=== PATIENT | male | born 1960 | race Caucasian/White ===

== ENCOUNTER 2019-06-02 09:50 | Outpatient (CLI) | payer BC, SELFPAY ==
--- NOTE | 2019-06-02 10:07 | MR_ITS ---
WS: [id number] MRI LUMBAR SPINE NONCONTRAST TECHNIQUE: Sagittal T1, T2 and STIR imaging. Axial T1 and T2 imaging. CLINICAL INFORMATION: INTERVERTEBRAL DIS DISORDERS WITH RADICULOPATHY COMPARISON: CT March 30, 2018 and MRI May 15, 2014 FINDINGS: Mild lumbar curve. No acute compression. No high-grade central canal stenosis. Mild annular bulging L 3-L4 and L4-L5. L1-L2: Normal. L2-L3: No significant disc bulging. Mild facet arthropathy. Spinal canal and foramen are patent. L3-L4: Mild annular bulging with a shallow central disc protrusion. Narrowing of the subarticular rec ess bilaterally. Mild central canal stenosis. Mild right greater than left foraminal narrowing. Mild facet arthropathy. L4-L5: Mild annular bulging. Slight narrowing of the right subarticular recess. Mild right and no sig nificant left foraminal narrowing. Mild facet arthropathy. L5-S1: No significant disc bulging. Spinal canal and foramen are patent. Visualized pelvic bony structures: Normal. Paravertebral soft tissues: Normal. MR/MR lumbar spine wo con* [id number] IMPRESSION: 1. Mild lumbar curve. No acute compression. No high-grade central canal stenos is. 2. Shallow central protrusion L3-4 with impingement on the right greater than left subarticular recess and traversing right L4 nerve root. Recommend correlat ion for L4 nerve root symptoms. Mild central canal stenosis at this level. 3. Annular bulging L4-5 with slight impingement on the right subarticular rece ss and traversing right L5 nerve root. 4. Mild foraminal narrowing more prominent at right L3-L4 and L4-L5. 5. Mild facet arthropathy L3-L5.
--- NOTE | 2019-06-02 10:08 | XR_ITS ---
WS: [id number] LUMBAR SPINE FLEXION AND EXTENSION TECHNIQUE: 3 views of the lumbar spine: Lateral neutral, flexion, and extension views. CLINICAL INFORMATION: INTERVERTEBRAL DIS DISORDERS WITH RADICULOPATHY COMPARISON: None. FINDINGS: Moderate spondylitic changes lumbar spine. Slight retrolisthesis L3 on L4 and L4 on L5. Disc space na rrowing worse at L3-4. Moderate facet arthropathy L5-S1. No instability on flexion-extension. Vascula r calcification. No acute appearing compression fractures.. Is XR/XR lumbar spine f/e only [id number] IMPRESSION: Slight retrolisthesis L3 on L4 and L4 on L5. No instability on flexion-extensio n.
== END 2019-06-02 09:51 | disposition home or self-care (01) ==
LOC: RADWPI 09:57
PROVIDERS: Family Provider Family Medicine; PCP Family Medicine; Visit Provider Anesthesiology Pain Medicine
DX: M51.16 Intervertebral disc disorders with radiculopathy, lumbar region (principal); M51.26 Other intervertebral disc displacement, lumbar region; M48.061 Spinal stenosis, lumbar region without neurogenic claudication; M47.816 Spondylosis without myelopathy or radiculopathy, lumbar region
CPT/HCPCS: 72120; 72148

== ENCOUNTER 2019-09-05 09:03 | Outpatient (CLI) | payer BC, SELFPAY ==
--- NOTE | 2019-09-05 09:30 | USCV_ITS ---
Thierno Barrios Age: 59 Gender: M : 1960 Exam Date: 09/05/2019 09:31 Ordering Phys: Artemio Ballard MD ([email or web address]) Technologist: Bennie Alvarado Exam Location: [facility] [place] Indication: ABNORMAL EKG BP: 130 / 65 HR: 65 Rhythm: Sinus Technical Quality: Adequate MEASUREMENTS (Male / Female) Normal Values 2D ECHO LV Diastolic Diameter PLAX 4.5 cm 4.2 - 5.9 / 3.9 - 5.3 cm LV Systolic Diameter PLAX 2.2 cm IVS Diastolic Thickness 1.0 cm 0.6 - 1.0 / 0.6 - 0.9 cm IVS Systolic Thickness 1.8 cm LVPW Diastolic Thickness 1.5 cm 0.6 - 1.0 / 0.6 - 0.9 cm LVPW Systolic Thickness 1.7 cm LVOT Diameter 2.0 cm LV Ejection Fraction 2D Teich 82.2 % LV Ejection Fraction MOD 2C 73.9 % LV Ejection Fraction 2C AL 72.0 % LA Diameter 4.6 cm LA Width 3.9 cm LA Height 4.8 cm RA Width 4.4 cm RA Height 5.0 cm Aorta at Sinotubular Diameter 2.7 cm M-MODE LV Diastolic Diameter MM 5.8 cm 4.2 - 5.9 / 3.9 - 5.3 cm LV Systolic Diameter MM 3.5 cm LV Ejection Fraction MM Teich 70.1 % IVS Diastolic Thickness MM 1.2 cm 0.6 - 1.0 / 0.6 - 0.9 cm IVS Systolic Thickness MM 1.8 cm LVPW Diastolic Thickness MM 1.5 cm 0.6 - 1.0 / 0.6 - 0.9 cm LVPW Systolic Thickness MM 2.1 cm RV Diastolic Diameter MM 1.6 cm Aortic Annulus Diameter 3.5 cm LA Ao Ratio MM 1.3 MV E Point Septal Separation 1.3 cm DOPPLER AV Peak Velocity 189.0 cm/s LVOT Peak Velocity 137.0 cm/s AV Area Cont Eq vti 2.5 cm squared AV Area Cont Eq pk 2.3 cm squared MV Area PHT 5.0 cm squared Mitral E to A Ratio 0.7 MV E' Velocity 10.0 cm/s Mitral E to MV E' Ratio 11.2 Mitral E to LV E' Lateral Ratio 10.8 Mitral E to LV E' Septal Ratio 11.6 TR Peak Velocity 130.0 cm/s TR Peak Gradient 6.8 mmHg TV Peak E Velocity 99.0 cm/s Right Atrial Pressure 3.0 mmHg Pulmonary Artery Systolic Pressu 9.8 mmHg PV Peak Velocity 127.0 cm/s FINDINGS Left Ventricle Normal left ventricular cavity size. Normal left ventricular systolic function. No regional wall motion abnormalities. Left ventricular ejection fraction is estimated at 60 %. Grade I/IV diastolic dysfunction (abnormal relaxation filling pattern), normal to mildly elevated filling pressures. Right Ventricle The right ventricle is normal in size and function. Right Atrium The right atrium is normal in size. Left Atrium The left atrium is normal in size. Mitral Valve Structurally normal mitral valve without significant stenosis or prolapse. There is no mitral regurgitation. Aortic Valve Moderate aortic valve calcification. There appeared to be thickening of aortic valve which could be secondary to calcification however cannot rule out vegetation clinical correlation indicated. Trace aortic valve regurgitation noted. Tricuspid Valve Structurally normal tricuspid valve without significant stenosis or regurgitation. Pulmonary artery systolic pressure is normal. Pulmonic Valve Structurally normal pulmonic valve without significant stenosis. There is no pulmonic regurgitation. Pericardium Normal pericardium without effusion. Aorta Normal ascending aorta dimension. CONCLUSIONS 1-Normal left ventricular cavity size. Normal left ventricular systolic function. No regional wall motion abnormalities. Left ventricular ejection fraction is estimated at 60 %. Grade I/IV diastolic dysfunction (abnormal relaxation filling pattern), normal to mildly elevated filling pressures. 2-Moderate aortic valve calcification. There appeared to be thickening of aortic valve which could be secondary to calcification however cannot rule out vegetation clinical correlation indicated. Trace aortic valve regurgitation noted. 3-There is no pericardial effusion. 4-Pulmonary artery systolic pressure is within normal limits. 5-Right atrial pressure is around 5 mm of mercury. 6-There are no prior echocardiogram studies to compare. Artemio Ballard MD (Electronically Signed) Final Date: 05 September 2019 18:16 S
== END 2019-09-05 09:04 | disposition home or self-care (01) ==
PROVIDERS: Family Provider Family Medicine; PCP Family Medicine; Visit Provider Internal Medicine Cardiovascular Disease
DX: R06.02 Shortness of breath (principal); R42 Dizziness and giddiness; R53.83 Other fatigue; I48.91 Unspecified atrial fibrillation; R94.31 Abnormal electrocardiogram [ECG] [EKG]; I35.1 Nonrheumatic aortic (valve) insufficiency
CPT/HCPCS: 93306

== ENCOUNTER → 2019-09-26 08:07 | Day surgery (SDC) | payer BC, SELFPAY ==
[2019-09-22 12:27] VITALS: BMI 28.7
[2019-09-26 08:31] VITALS: BP 183/63; PULSE 35; RESP 18; TEMP 36.2; O2SAT 99
--- NOTE | 2019-09-26 08:37 | ECG_ITS ---
[facility] Test Date: 2019-09-26 Pat Name: Thierno Barrios Department: Room: Gender: Male Call Or Contact Centre Manager: : 1960 Requested By: Susan Cortes Order Number: [id number] Mamta MD: Artemio Ballard M.D. Measurements Intervals [place] Rate: 32 P: -43 CO: 258 QRS: -57 QRSD: 135 T: -7 QT: 494 QTc: 362 Interpretive Statements SINUS BRADYCARDIA WITH FIRST DEGREE AV BLOCK MARKED LEFT AXIS DEVIATION [QRS AXIS < -30] INTRAVENTRICULAR CONDUCTION DELAY [130+ ms QRS DURATION] POSSIBLE ANTERIOR MYOCARDIAL INFARCTION [30 ms Q WAVE IN V3/V4, OR R < 0.2 mV IN V4], OF INDETERMINATE AGE No previous ECG available for comparison Electronically Signed On 09-26-2019 20:43:12 CDT by Artemio Ballard M.D. [id number]
--- NOTE | 2019-09-26 09:27 | SUR.PREOP ---
Procedure rescheduled due to afib and bradycardia per dr laureano
== END ==
PROVIDERS: PCP Family Medicine; Visit Provider Surgery
PROC: 0DJD8ZZ Inspection of Lower Intestinal Tract, Via Natural or Artificial Opening Endoscopic (ICD-10-PCS; CPT 45378; principal; 2019-09-26 09:30)
DX: Z01.818 Encounter for other preprocedural examination (principal)
CPT/HCPCS: 93005; J2704; J7030

== ENCOUNTER → 2019-10-17 09:53 | Outpatient (BNVA) | payer BC, SELFPAY | PROVIDERS: PCP Family Medicine; Visit Provider Licensed Practical Nurse | DX: M51.16 Intervertebral disc disorders with radiculopathy, lumbar region (principal); G62.89 Other specified polyneuropathies; M21.379 Foot drop, unspecified foot | CPT/HCPCS: 99214 ==

== ENCOUNTER 2019-10-31 12:22 | Observation (INO) | payer BC, SELFPAY ==
[2019-10-30 12:36] VITALS: BMI 29.0
--- NOTE | 2019-10-30 12:57 | P.ANESASSM_ITS ---
Pre-Anesthetic Assessment Pre-Anesthetic Assessment: Height/Weight: Height 1.68 m Weight 81.647 kg Preop Diagnosis: Mobitz type I AV heart block/dual-chamber pacemaker implantation Proposed Procedure: Operation Date: 11/01/19 08:40 Proposed Procedures p Pacemaker Insertion(Not Applicable) - Richard Garcia MD Familial anesthetic complications: None Social: Social History: No alcohol and No tobacco Exam: Pre-Anes Outpt Exam: alert, oriented x 3, clear to auscultation bilaterally and regular rate & rhythm Airway: Cervical ROM: WNL MP: 3 Dentition: Chipped and Other (missing) CV/HEM: CV/HEM: Afib and HTN Comments: AV block needs pacer *(bradycardia) : : Chronic renal Insufficiency Metabolic: Metabolic: DM Neuropsych: Neuropsych: Neuropathy Comments: sciatica Anesthetic Plan: ASA status: 4 Anesthesia: MAC Risk of > 500 ml blood loss (7ml/kg in children): No PFSH Anesthesia PFSH: Medical History Atrial fibrillation Axonal sensorimotor neuropathy Bradycardia Diabetes mellitus Footdrop HTN (hypertension) Hypercholesteremia Intervertebral disc disorder with radiculopathy of lumbar region Sleep apnea Surgical History H/O circumcision Hx of tonsillectomy Family History Father Cancer Diabetes Grandmother CAD (coronary artery disease) Denies family history of Anesthesia complication Bleeding disorder Social History Smoking and tobacco status: former smoker Alcohol intake: former Household members: none Marital status: / Current occupational status: disabled History of recent travel: No Data Anesthesia Cardiac Studies: No Data to Display
[2019-10-30 13:23] LABS: Basophils % 0.5 %; Eosinophils # 0.3 10^3/uL (0.0-0.8); Eosinophils % 4.5 %; Hematocrit 37.9 % (42.0-52.0); Lymphocytes # 1.4 10^3/uL (0.8-4.8); Mean Corpuscular HGB Conc 31.7 g/dL (30.0-36.0); Mean Corpuscular Hemoglobin 30.8 pg (28.0-34.0); Mean Corpuscular Volume 97.4 fL (80-94); Mean Platelet Volume 10.8 fL (7.4-10.4); Monocytes # 0.4 10^3/uL (0.2-0.9); Monocytes % 6.5 %; Neutrophils # 3.89 10^3/uL (1.8-7.7); Neutrophils % 65.3 %; Nucleated Red Blood Cells % 0 %; Platelet Count 239 10^3/cmm (130-400); Red Blood Count 3.89 10^6/uL (4.1-5.3); Red Cell Distribution Width 13.1 % (12.1-15.1)
[2019-10-30 13:46] LABS: Blood Urea Nitrogen 50 mg/dL (8-23); Calcium 9.3 mg/dL (8.5-10.5); Carbon Dioxide 15 mmol/L (22-29); Chloride 112 mmol/L (98-107); Glomerular Filtration Rate 26.4 mL/min (90-130); Glucose 229 mg/dL (65-115); Osmolality Calculated 301 mOsm/kg (285-295); Sodium 143 mmol/L (136-145)
[2019-10-30 13:48] LABS: Creatinine Clr Calc Pharmacy 31.1343
[2019-10-30 15:20] LABS: Add Urine Microscopic? YES; Bilirubin Urine Neg (NEGATIVE); Blood Urine Neg (Negative); Glucose Urine UA 1+ (Normal); Ketones Urine Negative (Negative); Leukocyte Esterase Urine Negative (Negative); Nitrate Urine Negative (Negative); Protein Urine 2+ (Negative); Specific Gravity, Urine 1.015 (1.005-1.030); Urine Appearance Clear (CLEAR); Urine Color Straw (Yellow); Urobilinogen Urine Norm (Negative); pH Urine 5 (5-7)
[2019-10-30 15:21] LABS: Add Urine Culture? No; Bacteria Urine 1+; Squamous Epithelial Cell Urine 0-4 (0-5); WBC Urine 0-4 /hpf (0-5)
[2019-10-31 12:46] VITALS: BP 180/72; PULSE 56; RESP 20; TEMP 36.5; O2SAT 96
[2019-10-31 13:10] VITALS: BMI 28.9
[2019-10-31] MEDS: levoFLOXacin 500 mg Tablet PO (15:03)
[2019-10-31 15:09] VITALS: BP 160/76; PULSE 62; RESP 18; TEMP 36.5; O2SAT 96
[2019-10-31 15:13] LABS: Coronavirus Lab Test PTC Negative
[2019-10-31 16:38] LABS: Glucose Point of Care 129 mg/dL (70-110)
[2019-10-31] MEDS: gemfibrozil 600 mg Tablet PO (18:03)
[2019-10-31] MEDS: mupirocin oint 22 gm 1 APPLIC NASAL (18:03)
--- NOTE | 2019-10-31 19:11 | PM.HP ---
Providers/Chief Complaint Admitting Physician: Artemio Ballard MD Primary Care Provider: Madhu Shi Jr, MD Chief Complaint: PACEMAKER REPLACEMENT History of Present Illness 59-year-old male past medical history significant for proteinuria hypertension paroxysmal atrial fibrillation chronic kidney disease baseline creatinine around 2.0 he has been experiencing shortness of breath fatigue for a while. He denies syncope though but admits to lightheadedness most of the time and unsteady on his feet. Baseline EKG is consistent with sinus bradycardia with Mobitz type I heart block. Patient has history of paroxysmal atrial fibrillation for which he cannot report on bernie jb due to baseline heart block. For the past few months he was even struggling to walk more than 100 feet as he become short of breath easily and has to sit down most of the time while awake heart rate stays into 40s. In the night it drops down into 20s and 30s with Mobitz type II heart block. He has been wearing event monitor which is consistently suggestive of most of the time with Mobitz type II heart block in the night while during the daytime he remains bradycardic and symptomatic. It is the reason we recommended to proceed with permanent pacemaker for symptomatic bradycardia and for therapeutic purpose in order to treat atrial fibrillation. Patient has mild UTI we will give him Levaquin. Patient has been admitted for IV hydration and he was feeling dizzy fatigue short of breath with bradycardia therefore it was thought that we should monitor him over the telemetry and may proceed with pacemaker. Medications/Allergies Home Medications Medication Instructions Recorded Confirmed Last Taken Type amlodipine 10 mg tablet 10 mg PO DAILY 08/03/19 10/31/19 10/30/19 16:00 History 10 mg apixaban 5 mg tablet 5 mg PO BID 08/03/19 10/30/19 10/28/19 History furosemide 20 mg tablet 20 mg PO DAILY 08/03/19 10/31/19 10/31/19 06:00 History 20 mg gabapentin 300 mg capsule 300 mg PO QID cap 08/03/19 10/31/19 10/31/19 12:00 History 300 mg gemfibrozil 600 mg tablet 600 mg PO BID 08/03/19 10/31/19 10/31/19 06:00 History 600 mg hydralazine 25 mg tablet 25 mg PO TID 08/03/19 10/31/19 10/31/19 12:00 History 25 mg insulin glargine 100 unit/mL 100 unit SUBCUT DAILY 08/03/19 10/31/19 10/30/19 22:00 History subcutaneous solution 100 units lisinopril 10 mg tablet 10 mg PO DAILY 08/03/19 10/31/19 10/31/19 06:00 History 10 mg lovastatin 40 mg tablet 40 mg PO DAILY 08/03/19 10/31/19 10/30/19 22:00 History 40 mg hydrocodone 7.5 mg-acetaminophen 1 tab PO Q6H PRN 08/07/19 10/31/19 10/31/19 12:00 History 325 mg tablet 7.5/325 mg ergocalciferol (vitamin D2) 1,250 1,250 mcg PO Q7D cap 08/31/19 10/31/19 10/30/19 06:00 History mcg (50,000 unit) capsule 1250 mcg insulin aspart U-100 100 unit/mL 12 unit SUBCUT TID ml 08/31/19 10/31/19 10/31/19 06:00 History (3 mL) subcutaneous pen 12 units Allergies Allergy/AdvReac Type Severity Reaction Status Date / Time canagliflozin [From Invokana] AdvReac Severe ADR-Loss Verified 10/17/19 10:08 of Appetite metformin AdvReac Severe mental Verified 10/17/19 10:08 alteration sertraline [From Zoloft] AdvReac Severe ADR-Loss Verified 10/17/19 10:08 of Appetite PFSH Acute PFSH: Medical History Atrial fibrillation Axonal sensorimotor neuropathy Bradycardia Diabetes mellitus Footdrop HTN (hypertension) Hypercholesteremia Intervertebral disc disorder with radiculopathy of lumbar region Renal failure Sleep apnea Surgical History H/O circumcision Hx of tonsillectomy Family History Father Cancer Diabetes Grandmother CAD (coronary artery disease) Denies family history of Anesthesia complication Bleeding disorder Social History Smoking and tobacco status: former smoker Alcohol intake: former Household members: none Marital status: / Current occupational status: disabled History of recent travel: No Vitals/I&O/Wt Last Vital Signs Temp 97.7 F 10/31/19 15:09 Pulse 62 10/31/19 15:09 Resp 18 10/31/19 15:09 BP 160/76 10/31/19 15:09 Pulse Ox 96 10/31/19 15:09 10/31/19 10/31/19 10/31/19 06:59 14:59 22:59 Intake Total 240 / 240 Balance 240 / 240 Weight last 48 hrs Weight 179 lb 4.8 oz Weight 180 lb Physical Exam Narrative: EXAM NARRATIVE: GENERAL: Patient is alert, awake and oriented x3. NECK: No jugular vein distension. HEENT: No cyanosis. No icterus. No pallor. HEART: Regularl irregular S1 and S2. No murmur, rub or gallop. LUNGS: Clear to auscultate bilaterally. ABDOMEN: Soft, nontender and nondistended. Positive bowel sounds. No guarding, rebound or tenderness. CENTRAL NERVOUS SYSTEM: Grossly nonfocal. EXTREMITIES: Lower extremities without edema bilaterally. Pulses palpable in the lower extremities, both dorsalis pedis and posterior tibial. Data : 10/30/19 12:25 11/01/19 04:09 A&P Assessment and plan (1) Heart bloc atrioventricular: Patient has Mobitz type I and II intermittent heart block. He has significant symptomatic bradycardia. He is dizzy fatigue short of breath. He has paroxysmal A. fib for which he needs bernie jb therefore we will recommend permanent pacemaker placement for heart block and for therapeutic purpose. He is being admitted due to his symptoms went for IV fluid before proceeding with permanent pacemaker in the morning. Status: Acute (2) Atrial fibrillation: Currently patient has sinus bradycardia Status: Acute Qualifiers: Atrial fibrillation type: longstanding persistent Qualified Code(s): I48.11 - Longstanding persistent atrial fibrillation (3) HTN (hypertension): Well-controlled continue medicine Status: Acute Qualifiers: Hypertension type: essential hypertension Qualified Code(s): I10 - Essential (primary) hypertension (4) Renal failure: Baseline creatinine is around 2 today is 2.5 patient has chronic renal failure stage IV I will recommend IV fluid overnight. Status: Acute Qualifiers: Chronic kidney disease stage: stage 4 (severe) Renal failure chronicity: chronic Qualified Code(s): N18.4 - Chronic kidney disease, stage 4 (severe) Attestations Medical Necessity Statement*: Require continuation of hospitalization for above defined care Coding Level of Care Code New Pt Acute Executive Vice President Business Development for Chg Fwd Patient Type New History Detailed Exam Detailed Medical Decision Making Moderate Complexity Diagnoses Heart bloc atrioventricular I44.30 Atrial fibrillation I48.11 Atrial fibrillation type: longstanding persistent HTN (hypertension) I10 Hypertension type: essential hypertension Renal failure N18.4 Chronic kidney disease stage: stage 4 (severe) Renal failure chronicity: chronic
[2019-10-31 20:00] VITALS: BP 155/64; PULSE 35; RESP 18; TEMP 36.8; O2SAT 97
[2019-10-31] MEDS: hyDRALAzine 25 mg Tablet PO (20:02)
[2019-10-31] MEDS: gabapentin 300 mg Capsule PO (20:03)
[2019-10-31] MEDS: HYDROcodone-acetaminophen 7.5-325 mg Tablet 1 TAB PO (20:03)
[2019-10-31 20:28] LABS: Glucose Point of Care 230 mg/dL (70-110)
[2019-10-31] MEDS: insulin glargine 100 units/1 mL 50 UNIT SUBCUT (20:44)
[2019-10-31 23:24] VITALS: BP 125/55; PULSE 32; RESP 18; TEMP 37.2; O2SAT 97
[2019-11-01] VITALS (37 sets, daily range): BP systolic 137–189; BP diastolic 60–91; PULSE 31–65; RESP 12–23; TEMP 36.2–36.9; O2SAT 95–99
--- NOTE | 2019-11-01 | SCC_ITS ---
Procedure Done: Dual-chamber pacemaker implantation 160.1 seconds of fluoroscopic guidance, for a cumulative dose of 62.93 mGy, was provided to Dr. Garcia by the radiology department. C-arm images of the chest were saved for the patient's permanent record. [facility] CENTERAdrian
[2019-11-01 05:20] LABS: Anion Gap 21.7 (5-19); Blood Urea Nitrogen 53 mg/dL (8-23); Calcium 8.5 mg/dL (8.5-10.5); Carbon Dioxide 14 mmol/L (22-29); Chloride 112 mmol/L (98-107); Glomerular Filtration Rate 27.7 mL/min (90-130); Glucose 115 mg/dL (65-115); Osmolality Calculated 295 mOsm/kg (285-295); Potassium 4.7 mmol/L (3.5-5.1); Sodium 143 mmol/L (136-145)
--- NOTE | 2019-11-01 06:21 | PM.CONSULT ---
Providers/Reason For Consult Consulting Physican/Specialty*: Dr. Garcia/cardiothoracic surgery Reason for Consult*: Dr. Ballard Attending Physician: Richard Garcia MD Primary Care Provider: Madhu Shi Jr, MD History of Present Illness History of Present Illness Thierno Barrios is a 59 year old male who was directly mated overnight for planned hydration in preparation for planned dual-chamber pacemaker implantation today for Mobitz type I heart block with documented bradycardia into the 20s and 30s and intermittent Mobitz type II heart block. Prior evaluation during a period of event monitoring has been suggestive of Mobitz type II heart block at night and continued bradycardia and highly symptomatic during the day. Patient was found to have a mild urinary tract infection with placed on Levaquin yesterday. Due to his highly symptomatic response to his arrhythmia, pacemaker implantation been recommended by Dr. Ballard. He is received hydration overnight. In preparation for planned surgery this morning. Because of periods of very symptomatic paroxysmal atrial fibrillation, bernie blockade is required, therefore pacemaker implantation is been recommended to allow for continued medical management for his arrhythmia. He has ongoing history of left lower extremity sciatica, particular involving sensation to the anterior left thigh as well as decreased range of motion. Specialist includes previous evaluation and documented decreased range of motion of the cervical spine and lower lumbar spine with radiculopathy. Review of Systems Const: Denies: fever(s), chills, change in appetite, change in weight, fatigue or night sweats Eyes: Denies: change in vision or blurry vision ENMT: Denies: odynophagia or hoarseness Card: Reports: irregular heart rhythm, pre-syncope and dyspnea on exertion; Denies: chest pain, palpitations or edema Resp: Denies: dyspnea or productive cough GI: Denies: abdominal pain, nausea, vomiting, dysphagia, heartburn or change in bowel habits : Denies: difficulty urinating, dysuria, urinary frequency, urinary urgency or urinary hesitancy Musc: Denies: extremity pain or extremity swelling Skin/Breast: Denies: rash Neuro: Denies: headache(s), numbness in extremities, weakness in extremities or sensory changes Psych: Denies: anxiety, depression or change in appetite Endo: Denies: polyuria, polydipsia or cold intolerance Stefan/Lymph: Denies: easy bruising, easy bleeding, petechiae or enlarged lymph nodes Meds/Allergies Home Medications and Allergies Home Medications Medication Instructions Recorded Confirmed Last Taken Type amlodipine 10 mg tablet 10 mg PO DAILY 08/03/19 10/31/19 10/30/19 16:00 History 10 mg apixaban 5 mg tablet 5 mg PO BID 08/03/19 10/30/19 10/28/19 History furosemide 20 mg tablet 20 mg PO DAILY 08/03/19 10/31/19 10/31/19 06:00 History 20 mg gabapentin 300 mg capsule 300 mg PO QID cap 08/03/19 10/31/19 10/31/19 12:00 History 300 mg gemfibrozil 600 mg tablet 600 mg PO BID 08/03/19 10/31/19 10/31/19 06:00 History 600 mg hydralazine 25 mg tablet 25 mg PO TID 08/03/19 10/31/19 10/31/19 12:00 History 25 mg insulin glargine 100 unit/mL 100 unit SUBCUT DAILY 08/03/19 10/31/19 10/30/19 22:00 History subcutaneous solution 100 units lisinopril 10 mg tablet 10 mg PO DAILY 08/03/19 10/31/19 10/31/19 06:00 History 10 mg lovastatin 40 mg tablet 40 mg PO DAILY 08/03/19 10/31/19 10/30/19 22:00 History 40 mg hydrocodone 7.5 mg-acetaminophen 1 tab PO Q6H PRN 08/07/19 10/31/19 10/31/19 12:00 History 325 mg tablet 7.5/325 mg ergocalciferol (vitamin D2) 1,250 1,250 mcg PO Q7D cap 08/31/19 10/31/19 10/30/19 06:00 History mcg (50,000 unit) capsule 1250 mcg insulin aspart U-100 100 unit/mL 12 unit SUBCUT TID ml 08/31/19 10/31/19 10/31/19 06:00 History (3 mL) subcutaneous pen 12 units Allergies Allergy/AdvReac Type Severity Reaction Status Date / Time canagliflozin [From Invokana] AdvReac Severe ADR-Loss Verified 10/17/19 10:08 of Appetite metformin AdvReac Severe mental Verified 10/17/19 10:08 alteration sertraline [From Zoloft] AdvReac Severe ADR-Loss Verified 10/17/19 10:08 of Appetite Current Medications Current Medications Generic Name Dose Route Start Last Admin Trade Name Freq PRN Reason Stop Dose Admin Hydrocodone Bitart/Acetaminophen 1 tab 10/31/19 17:27 10/31/19 20:03 [place] 7.5-325 Mg PO 1 tab Q6H PRN Administration Pain Gabapentin 300 mg 10/31/19 21:00 10/31/19 20:03 Neurontin PO 300 mg QID DEV Administration Gemfibrozil 600 mg 10/31/19 18:00 10/31/19 18:03 Lopid PO 600 mg BID DEV Administration Hydralazine HCl 25 mg 10/31/19 21:00 10/31/19 20:02 Apresoline PO 25 mg TID DEV Administration Insulin Aspart 0 unit 10/31/19 18:00 10/31/19 20:11 Novolog SUBCUT Not Given WM&BEDTIME DEV Protocol Insulin Glargine 50 unit 10/31/19 21:00 10/31/19 20:44 Lantus SUBCUT 50 unit BEDTIME DEV Administration Mupirocin 1 applic 10/31/19 18:00 10/31/19 18:03 Bactroban NASAL 2 dose BID DEV Administration PFSH Acute PFSH: Medical History Atrial fibrillation Axonal sensorimotor neuropathy Bradycardia Diabetes mellitus [place] HTN (hypertension) Hypercholesteremia Intervertebral disc disorder with radiculopathy of lumbar region Renal failure Sleep apnea Surgical History H/O circumcision Hx of tonsillectomy Family History Father Cancer Diabetes Grandmother CAD (coronary artery disease) Denies family history of Anesthesia complication Bleeding disorder Social History Smoking and tobacco status: former smoker Alcohol intake: former Household members: none Marital status: / Current occupational status: disabled History of recent travel: No Vitals/I&O/Wt Last Vital Signs Temp 98.3 F 11/01/19 03:25 Pulse 31 L 11/01/19 03:25 Resp 18 11/01/19 03:25 BP 137/60 11/01/19 03:25 Pulse Ox 97 11/01/19 03:25 10/31/19 10/31/19 11/01/19 14:59 22:59 06:59 Intake Total 240 / 240 Balance 240 / 240 Weight last 48 hrs Weight 179 lb 4.8 oz Weight 180 lb Physical Exam Const: COMMON NORMALS: patient oriented x3 Neck/C-Spine: COMMON NORMALS: No carotid bruits; negative for full ROM GENERAL: Yes trachea midline CERVICAL SPINE: No cervical ROM normal Chest: COMMONS NORMALS: normal inspection of the chest and normal palpation of entire chest wall Resp: COMMON NORMALS: normal respiratory effort, No use of accessory muscles and clear to auscultation bilaterally EFFORT & INSPECTION: Yes able to speak in complete sentences and Yes symmetric chest movement AUSCULTATION: clear to auscultation bilaterally Cardio: COMMON NORMALS: S1 normal heart sound present PALPATION: normal PMI RHYTHM: abnormal rhythm irregularly irregular HEART SOUNDS: S1 normal heart sound present GI: COMMON NORMALS: Normal to inspection, nondistended, normoactive bowel sounds present, Soft to palpation, non-tender and no bruits INSPECTION: Yes normal to inspection AUSCULTATION: Yes normoactive bowel sounds PALPATION: Yes Soft to palpation and No Rebound tenderness present Extremity: COMMON NORMALS: no clubbing, cyanosis or edema; negative for full ROM Neuro: COMMON NORMALS: patient oriented x3 and no focal motor deficits; negative for no sensory deficits noted (Anterior left lower extremity hyperesthesia) A&P Assessment and plan (1) Heart bloc atrioventricular: Highly symptomatic and refractory paroxysmal atrial fibrillation and Mobitz type II AV heart block. Plan: We will plan to proceed with dual-chamber pacemaker implantation. If patient remains in A. fib at the time of the lead implantation, will be unable to assess threshold for the atrial lead. He does not risk of surgery were carefully and frankly discussed including potential risk for pneumothorax, major bleeding, major vascular injury, dislodgment of the leads requiring revision, inability to place the leads, infection requiring explantation of the entire system, need for long-term follow-up, and continued symptoms despite successful device implantation. He wishes to proceed. Consents have been provided for review and signature. Status: Acute Consult Attestations Medical Necessity Statement: Refractory bradycardia with paroxysmal atrial fibrillation and Mobitz type II AV heart block Time Spent in Patient Care: Greater than 35 minutes Coding Level of Care Code Acute Sap Security Architect for Chg Fwd Diagnoses Heart bloc atrioventricular I44.30
--- NOTE | 2019-11-01 06:38 | XRR_ITS ---
PROCEDURE INFORMATION: Exam: XR Chest, 1 View Exam date and time: 11/01/2019 6:49 AM Age: 59 years old Clinical indication: Screening exam; Pre-operative exam; Cardiovascular screening; Patient HX: Pre- op for pacemaker implantation; Additional info: Preop for dual-chamber pacemaker implantation TECHNIQUE: Imaging protocol: XR of the chest Views: 1 view. COMPARISON: No relevant prior studies available. FINDINGS: Lungs: Lungs are well aerated without a focal area of consolidation. Pleural space: Unremarkable. No pleural effusion. No pneumothorax. Heart/Mediastinum: The cardiac silhouette appears enlarged, some of which is magnification related to the AP projection. Bones/joints: Unremarkable. XR/XR chest 1V portable [id number] IMPRESSION: Lungs are well aerated without a focal area of consolidation.
--- NOTE | 2019-11-01 06:38 | SC_ITS ---
WS: [id number] C-ARM RADIOGRAPHS CHEST; 2 IMAGES HISTORY: Dual-chamber pacemaker implantation COMPARISON: None available. Intraoperative imaging during pacer placement. SC/C-arm FL for Pacemaker IMPRESSION: Intraoperative imaging during pacer placement.
--- NOTE | 2019-11-01 06:58 | P.ANESUD_ITS ---
Pre-Anesthetic Update Pre-Anesthetic Assessment: Date of Surgery/Procedure: 11/01/19 Preop Usha gnosis: Mobitz type I AV heart block/dual-chamber pacemaker implantation Proposed Procedure: Operation Date: 11/01/19 07:00 Proposed Procedures p Pacemaker Insertion(Not Applicable) - Richard Garcia MD Any changes to Pre-Anesthetic Assessment?: No Last Intake: Intake Last Liquid Date 10/31/19 Last Liquid Time 23:59 Last Solid Date 10/31/19 Last Solid Time 23:59 Labs Last 48hrs: Laboratory Results - last 48 hr 10/30/19 10/30/19 10/30/19 11:00 12:25 12:25 WBC 6.0 RBC 3.89 L Hgb 12.0 Hct 37.9 L MCV 97.4 H MCH 30.8 MCHC 31.7 RDW 13.1 Plt Count 239 MPV 10.8 H Neut % (Auto) 65.3 Lymph % (Auto) 23.0 [place] % (Auto) 6.5 Eos % (Auto) 4.5 Baso % (Auto) 0.5 Neut # (Auto) 3.89 Lymph # (Auto) 1.4 [place] # (Auto) 0.4 Eos # (Auto) 0.3 Baso # (Auto) 0.0 Nucleated RBC % (a uto) 0 Nucleated RBCs # 0.0 PT INR Sodium 143 Potassium 5.0 Chloride 112 H Carbon Dioxide 15 L Anion Gap 21.0 H BUN 50 H Creatinine 2.5 H GFR Calculation 26.4 L Glucose 229 H POC Glucose Calculated Osmolal ity 301 H Calcium 9.3 Urine Color Urine Appearance Urine pH Ur Specific Gravit y Urine Protein Urine Glucose (UA) Urine Ketones Urine Blood Urine Nitrate Urine Bilirubin Urine Urobilinogen Ur Leukocyte Swetha ase Urine RBC Urine WBC Ur Squamous Epith Cells Amorphous Sediment Urine Bacteria Nasal/Oral COVID-1 9 PCR Negative 10/30/19 10/30/19 10/31/19 12:25 12:25 16:32 WBC RBC Hgb Hct MCV MCH MCHC RDW Plt Count MPV Neut % (Auto) Lymph % (Auto) [place] % (Auto) Eos % (Auto) Baso % (Auto) Neut # (Auto) Lymph # (Auto) [place] # (Auto) Eos # (Auto) Baso # (Auto) Nucleated RBC % (a uto) Nucleated RBCs # PT 13.50 INR 1.00 Sodium Potassium Chloride Carbon Dioxide Anion Gap BUN Creatinine GFR Calculation Glucose POC Glucose 129 Calculated Osmolal ity Calcium Urine Color Straw Urine Appearance Clear Urine pH 5 Ur Specific Gravit y 1.015 Urine Protein 2+ H Urine Glucose (UA) 1+ Urine Ketones Negative Urine Blood Neg Urine Nitrate Negative Urine Bilirubin Neg Urine Urobilinogen Norm Ur Leukocyte Swetha ase Negative Urine RBC None Urine WBC 0-4 H Ur Squamous Epith Cells 0-4 H Amorphous Sediment Not Reportable Urine Bacteria 1+ H Nasal/Oral COVID-1 9 PCR 10/31/19 11/01/19 20:09 04:09 WBC RBC Hgb Hct MCV MCH MCHC RDW Plt Count MPV Neut % (Auto) Lymph % (Auto) [place] % (Auto) Eos % (Auto) Baso % (Auto) Neut # (Auto) Lymph # (Auto) [place] # (Auto) Eos # (Auto) Baso # (Auto) Nucleated RBC % (a uto) Nucleated RBCs # PT INR Sodium 143 Potassium 4.7 Chloride 112 H Carbon Dioxide 14 L Anion Gap 21.7 H BUN 53 H Creatinine 2.4 H GFR Calculation 27.7 L Glucose 115 POC Glucose 230 Calculated Osmolal ity 295 Calcium 8.5 Urine Color Urine Appearance Urine pH Ur Specific Gravit y Urine Protein Urine Glucose (UA) Urine Ketones Urine Blood Urine Nitrate Urine Bilirubin Urine Urobilinogen Ur Leukocyte Swetha ase Urine RBC Urine WBC Ur Squamous Epith Cells Amorphous Sediment Urine Bacteria Nasal/Oral COVID-1 9 PCR Vitals: Temperature 98.0 F 11/01/19 06:40 Temperature Source Temporal Artery S can 11/01/19 06:40 Pulse Rate 34 L 11/01/19 06:40 Pulse Rhythm 11/01/19 06:47 Respiratory Rate 18 11/01/19 06:40 Respiratory Effort Non-Labored 10/31/19 12:52 Respiratory Depth Normal 10/31/19 12:52 Respiratory Patter n 10/31/19 12:52 Blood Pressure 181/65 11/01/19 06:40 Blood Pressure Ernestine n 103 11/01/19 06:40 Pulse Oximetry 98 11/01/19 06:40 Oxygen Delivery Me thod 11/01/19 06:47 Exam: Pre-Anes Outpt Exam: alert, oriented x 3, clear to auscultation bilaterally and regular rate & rhythm Cardiac Studies: Holter Monitor 10/31/19
[2019-11-01] MEDS: sodium chloride 0.9% 1,000 ML 30 ML IV (07:09)
[2019-11-01] MEDS: lidocaine 1% INJ 20 mL INJECTION (07:33)
--- NOTE | 2019-11-01 07:42 | SUR.OPER ---
attempted to contact mother to let her know procedure has started. no answer, no voicemail.
[2019-11-01] MEDS: levofloxacin-dextrose 5 % 500 MG/100 ML PREMIX 100 MG IV (07:44)
[2019-11-01] MEDS: ceFAZolin 1,000 mg SDV 1000 MG IRRIGATION (07:44)
--- NOTE | 2019-11-01 08:47 | PM.OP ---
Operative Report Date of procedure: November 01, 2019 Pre-op Diagnosis: Mobitz type II AV heart block/dual-chamber pacemaker implantation Post-op diagnosis: same Procedure Done: Dual-chamber pacemaker implantation Specimens removed/disposition: None Pathology: none sent Surgeon: Richard Garcia Anesthesia: MAC and Local Estimated blood loss (mL): 20 Complications: None: Post procedure chest x-ray pending Findings: Fluoroscopy utilized for guidewire, dilator and sheath, and subsequent lead positioning Condition: stable Disposition: PACU Brief History: 59-year-old gentleman with highly symptomatic and refractory bradycardia with paroxysmal atrial fibrillation and needed beta-blockade and with documented Mobitz type II AV block with heart rates documented in the 20s and 30s. Dual-chamber pacemaker implantation is been recommended by Dr. Ballard to allow for continued medical management of his paroxysmal atrial fibrillation and symptomatic bradycardia. Details of risk the procedure carefully and frankly discussed. Proper consents have been reviewed and signed. Procedure: Procedure: Mr. Barrios was taken to the OR suite and placed in the supine position over a shoulder roll. He received conscious sedation with continuous anesthesia monitoring by. His entire chest was sterilely prepped and draped. 1% lidocaine was infiltrated in the left subclavicular region. While in Trendelenburg position, utilizing modified seldinger technique, 2 guidewires were placed in the left subclavian vein. This was confirmed in position by fluoroscopy. Next, after infiltration with lidocaine, a subcutaneous pocket was created beginning from the exit point of the guidewire and extending laterally and inferiorly. Cautery was utilized to create the pocket just above the pectoralis musculature. Hemostasis was confirmed. An antibiotic-soaked sponge was placed in the wound. A dilator and tear-away sheath was placed over the first guidewire and advanced under fluoroscopy. Guidewire and dilator were removed. Next using a combination of curved and straight stylettes, the right ventricular lead was placed in position by fluoroscopy. The distal screw was extended. Interrogation was then performed confirming appropriate parameters. The tear-away sheath was then removed and the ventricular lead was sewn to the floor of the subcutaneous pocket. In a similar fashion dilator and tear-away sheath was placed over the 2nd guide wire and advanced under fluoroscopy. Guidewire and dilator were removed. Straight and curved stylettes were used to position the right atrial lead with fluoroscopy. Distal screw was extended. Interrogation was then performed. Tear-away sheath was then removed. Atrial lead was secured to the floor of the subcutaneous pocket. Pocket was irrigated with antibiotic solution and hemostasis again confirmed. Pacing generator was brought into the field, and after confirmation of hemostasis in the subcutaneous pocket, the leads were connected to the generator with appropriate capture. The entire system was interrogated by fluoroscopy. Leads and generator were secured in the pocket. Sponge and needle count was correct. The wound was then closed in 2 layers of 3-0 Vicryl suture. Skin was reapproximated in a subcuticular manner with 4-0 Monocryl suture. A pressure dressing was applied. The left arm was placed in a sling. The patient had equal breath sounds bilaterally. He was then transferred to the PACU, where chest x-ray is currently pending. I did residential counselor with the family at the completion of the procedure. Following are the specifics of this system: Right ventricular lead is 58 cm and model 5076. Serial number [id number] Right atrial lead is 52 cm and is model 5076. Serial number [id number]. Ventricular lead had sensing of 9.1 mV with an impedance of 646 ohms. Threshold was 0.75 V Atrial lead had sensing of 1.5 mV with an impedance of 570 ohms. Threshold was 1.0 V. [employer] generator: Model # [id number] Serial #[id number]
--- NOTE | 2019-11-01 08:55 | SUR.PHASEI ---
0851 PATIENT TO PACU FROM OR. RR EVEN AND UNLABORED. PRESSURE DRESSING TO LEFT CHEST, CDI. PATIENT DENIES PAIN.
--- NOTE | 2019-11-01 09:13 | XRR_ITS ---
PROCEDURE INFORMATION: Exam: XR Chest, 1 View Exam date and time: 11/01/2019 9:20 AM Age: 59 years old Clinical indication: Device placement; Cardiac pacemaker placement or adjustment; Patient HX: Pacemaker placement today; Additional info: Post pacemaker placement TECHNIQUE: Imaging protocol: XR of the chest Views: 1 view. COMPARISON: CR XR chest 1V portable [id number] 11/01/2019 6:39 AM FINDINGS: Lungs: Linear opacity projects over the left apex. Possibly extraneous. Possible atelectasis. No pneumothorax. No focal consolidation. Pleural space: See Lungs finding. Heart/Mediastinum: Unremarkable. No cardiomegaly. Vasculature: Pacemaker is present via a left subclavian approach. Bones/joints: Unremarkable. XR/XR chest 1V portable [id number] IMPRESSION: Linear opacity projects over the left apex. Possibly extraneous. Possible atelectasis. No pneumothorax. No focal consolidation.
--- NOTE | 2019-11-01 09:20 | PM.PACU ---
PACU note PACU note: Pain 0/10 Post-Anesthesia Exam: awake and vital signs stable Disposition: back to floor
--- NOTE | 2019-11-01 09:25 | SUR.PHASEI ---
0918 PATIENT TO CSU. DENIES PAIN. DRESSING TO LEFT CHEST, CDI. PATIENT TOLERATING ICE CHIPS. PATIENT AMBULATORY FROM [facility] TO BED WHEN ARRIVING TO CSU.
[2019-11-01] MEDS: pantoprazole DR 40 mg Tablet PO (11:22)
[2019-11-01 11:24] LABS: Glucose Point of Care 102 mg/dL (70-110)
[2019-11-01] MEDS: gabapentin 300 mg Capsule PO ×3 (13:40→21:05)
[2019-11-01] MEDS: HYDROcodone-acetaminophen 7.5-325 mg Tablet 1 TAB PO (15:28)
[2019-11-01] MEDS: hyDRALAzine 25 mg Tablet PO ×2 (15:29→21:05)
[2019-11-01 16:02] LABS: Glucose Point of Care 193 mg/dL (70-110)
[2019-11-01] MEDS: artificial tears Op Soln 15 mL Btl 1 DROP EYE-BOTH (17:35)
[2019-11-01] MEDS: gemfibrozil 600 mg Tablet PO (17:37)
[2019-11-01] MEDS: mupirocin oint 22 gm 1 APPLIC NASAL (17:38)
--- NOTE | 2019-11-01 17:52 | PM.PN ---
Subjective Subjective: Interval history: Status post permanent pacemaker he is feeling already better. Overall remained stable. Medications: Reviewed: Yes Vitals/I&O/Wt Last Vital Signs Temp 98.0 F 11/01/19 15:27 Pulse 61 11/01/19 15:58 Resp 18 11/01/19 15:27 BP 140/76 11/01/19 15:27 Pulse Ox 95 11/01/19 15:58 11/01/19 11/01/19 11/01/19 06:59 14:59 22:59 Intake Total 390 / 390 240 / 630 Output Total 700 / 705 Balance 385 / 385 -460 / -75 Weight last 48 hrs Weight 179 lb 4.8 oz Physical Exam Narrative: EXAM NARRATIVE: GENERAL: Patient is alert, awake and oriented x3. NECK: No jugular vein distension. HEENT: No cyanosis. No icterus. No pallor. HEART: Regularl irregular S1 and S2. No murmur, rub or gallop. LUNGS: Clear to auscultate bilaterally. ABDOMEN: Soft, nontender and nondistended. Positive bowel sounds. No guarding, rebound or tenderness. CENTRAL NERVOUS SYSTEM: Grossly nonfocal. EXTREMITIES: Lower extremities without edema bilaterally. Pulses palpable in the lower extremities, both dorsalis pedis and posterior tibial. Data : 10/30/19 12:25 11/01/19 04:09 A&P Assessment and plan (1) Heart bloc atrioventricular: Status post permanent pacemaker. Doing fine from cardiovascular perspective. Continue and resume home meds Status: Acute (2) Atrial fibrillation: In sinus rhythm. We will resume Eliquis tomorrow Status: Acute Qualifiers: Atrial fibrillation type: longstanding persistent Qualified Code(s): I48.11 - Longstanding persistent atrial fibrillation (3) HTN (hypertension): Well-controlled. Status: Acute Qualifiers: Hypertension type: essential hypertension Qualified Code(s): I10 - Essential (primary) hypertension (4) Renal failure: Creatinine has improved slightly continue IV fluid Status: Acute Qualifiers: Renal failure chronicity: chronic Chronic kidney disease stage: stage 4 (severe) Qualified Code(s): N18.4 - Chronic kidney disease, stage 4 (severe) Attestations Medical Necessity Statement*: Patient require continuation hospitalization for above defined care Coding Level of Care Code Established Pt Acute Compound Machine Operator for Chg Fwd Patient Type Established History Expanded Problem Focused Exam Expanded Problem Focused Medical Decision Making Moderate Complexity Diagnoses Heart bloc atrioventricular I44.30 Atrial fibrillation I48.11 Atrial fibrillation type: longstanding persistent HTN (hypertension) I10 Hypertension type: essential hypertension Renal failure N18.4 Renal failure chronicity: chronic Chronic kidney disease stage: stage 4 (severe)
--- NOTE | 2019-11-01 20:03 | PC.NURSE ---
Patient does not have any complaints at this time. Patient educated to ask for pain medication when he is in pain. Dressing/site to left chest WNL. Patient education on post-pacemaker activity restrictions and verbalized understanding. Will monitor.
[2019-11-01 21:10] LABS: Glucose Point of Care 172 mg/dL (70-110)
[2019-11-01] MEDS: insulin glargine 100 units/1 mL 50 UNIT SUBCUT (21:20)
[2019-11-02 00:06] VITALS: BP 155/75; PULSE 63; RESP 20; TEMP 36.8; O2SAT 96
[2019-11-02] MEDS: HYDROcodone-acetaminophen 7.5-325 mg Tablet 1 TAB PO ×2 (00:06→07:08)
--- NOTE | 2019-11-02 00:14 | PC.NURSE ---
Left chest site WNL. VSS. PRN pain medication given per patient request. Will monitor.
--- NOTE | 2019-11-02 02:00 | PC.NURSE ---
Patient is currently resting with eyes closed. Will monitor.
[2019-11-02 04:50] VITALS: BP 123/79; PULSE 61; RESP 18; TEMP 36.7; O2SAT 96
--- NOTE | 2019-11-02 06:00 | XR_ITS ---
WS: [id number] Portable AP upright chest, 11/02/2019 Clinical Data: Post permanent pacemaker placement; visualize lead tip Comparison: Portable chest, 11/01/2019 Findings: No nodules, masses or effusions are seen. The heart is normal. The pulmonary vascularity is not increased. No pneumonia or pneumothorax is seen. The 2-lead pacemaker remains in good position w ith the generator overlapping the left lateral chest. XR/XR chest 1V [id number] Impression: Atherosclerosis.
--- NOTE | 2019-11-02 06:00 | ECG_ITS ---
[facility] Test Date: 2019-11-02 Pat Name: Thierno Barrios Department: Room: 112 Gender: Male Sports Medicine Specialist: : [id number] Requested By: Richard Garcia Order Number: [id number] Oleary MD: Phil Wells M.D. Measurements Intervals [place] Rate: 59 P: 170 [place]: 174 QRS: -83 QRSD: 185 T: 63 QT: 469 QTc: 468 Interpretive Statements ELECTRONIC ATRIAL PACEMAKER ELECTRONIC VENTRICULAR PACEMAKER Compared to ECG 09/26/2019 08:46:54 Sinus bradycardia no longer present First degree AV block no longer present Left-axis deviation no longer present Intraventricular conduction delay no longer present Myocardial infarct finding no longer present Electronically Signed On 11-02-2019 16:27:07 CDT by Phil Wells M.D. [id number]
--- NOTE | 2019-11-02 06:01 | P.DS_ITS ---
Discharge Providers Date of Admission: 10/31/19 12:22 Date of Discharge: November 02, 2019 Attending Provider at Admission: Artemio Ballard MD Attending Provider at Discharge: Richard Garcia MD Primary Care Provider: Madhu Shi Jr, MD Diagnoses at Discharge Discharge Diagnosis (1) Heart bloc atrioventricular: Status: Acute (2) Atrial fibrillation: Status: Acute Qualifiers: Atrial fibrillation type: longstanding persistent Qualified Code(s): I48.11 - Longstanding persistent atrial fibrillation (3) HTN (hypertension): Status: Acute Qualifiers: Hypertension type: essential hypertension Qualified Code(s): I10 - Essential (primary) hypertension (4) Renal failure: Status: Acute Qualifiers: Renal failure chronicity: chronic Chronic kidney disease stage: stage 4 (severe) Qualified Code(s): N18.4 - Chronic kidney disease, stage 4 (severe) Reason for Visit Reason for Visit: PACEMAKER REPLACEMENT Hospital Course Discharge Summary: Mr. Barrios is a 59-year-old gentleman with paroxysmal atrial fibrillation and highly symptomatic bradycardia with heart rates in the 20s and 30s and documented Mobitz type I and Mobitz type II heart block. As part of continued medical management of his paroxysmal atrial fibrillation, further blockade may be required, and therefore dual-chamber pacemaker implantation is been recommended. He was electively admitted and underwent dual-chamber pacemaker implantation yesterday. Postoperative, he has done well. Device interrogation this morning reveals good function. Surgical site is clean and dry. Minimal swelling. Minimal incisional discomfort. Vital signs are stable. He will be discharged to home today in stable condition. He will be scheduled to follow-up in the pacemaker clinic in 8 days. Physical Exam Chest: COMMONS NORMALS: normal inspection of the chest (Inner surgical dressing is clean and dry. No swelling. Minimal discomfort at the incision site.) and normal palpation of entire chest wall Resp: COMMON NORMALS: normal respiratory effort and clear to auscultation bilaterally EFFORT & INSPECTION: Yes able to speak in complete sentences and Yes symmetric chest movement AUSCULTATION: clear to auscultation bilaterally Cardio: COMMON NORMALS: regular rate, regular rhythm, S1 normal heart sound present and No murmurs present (Cardio) RATE: regular rate RHYTHM: regular rhythm HEART SOUNDS: S1 normal heart sound present Extremity: COMMON NORMALS: no clubbing, cyanosis or edema Discharge Data Data Completed and Pending: Completed Studies During Hospitalization Category Date Time Status XR chest 1V gina ble [id number] Routine Exams 11/01/19 06:38 Completed XR chest 1V gina ble [id number] Routine Exams 11/01/19 09:13 Completed Pending at discharge Category Date Time Status XR chest 1V [id number] Routine Exams 11/02/19 06:00 Taken Labs from last 24 hours 11/01/19 11/01/19 11/01/19 20:35 15:57 11:12 POC Glucose 172 193 102 Vitals: Last Vital Signs Temp 98.1 F 11/02/19 04:50 Pulse 61 11/02/19 04:50 Resp 18 11/02/19 04:50 BP 123/79 11/02/19 04:50 Pulse Ox 96 11/02/19 04:50 Discharge Plan Discharge Patient Disposition: Home Condition: Stable Prescriptions: Continued Eliquis 5 mg tablet 5 mg PO BID RF: 0 gabapentin 300 mg capsule 300 mg PO QID RF: 0 gemfibrozil 600 mg tablet 600 mg PO BID RF: 0 hydralazine 25 mg tablet 25 mg PO TID RF: 0 lisinopril 10 mg tablet 10 mg PO DAILY RF: 0 lovastatin 40 mg tablet 40 mg PO DAILY RF: 0 Lantus U-100 Insulin 100 unit/mL solution 100 unit SUBCUT DAILY RF: 0 insulin aspart U-100 [Novolog Flexpen U-100 Insulin] 100 unit/mL (3 mL) insulin pen 12 unit SUBCUT TID RF: 0 amlodipine 10 mg tablet 10 mg PO DAILY RF: 0 furosemide 20 mg tablet 20 mg PO DAILY RF: 0 hydrocodone-acetaminophen 7.5-325 mg tablet 1 tab PO Q6H PRN (Reason: Pain) RF: 0 ergocalciferol (vitamin D2) 1,250 mcg (50,000 unit) capsule 1,250 mcg PO Q7D RF: 0 Discharge Orders: Discharge Order (Routine); Ordered 11/02/19 Ordered By: Richard Garcia Referrals: [facility] [Provider Group] - 11/10/19 (Pacemaker clinic) Discharge Diet: Usual diet Discharge Activity: Limit activity as instructed Activity Restrictions/Additional Instructions: Do not raise left arm above eye level for 5 days May remove surgical bandage on Wednesday. May begin showers on Wednesday. No swimming or tub baths x2 weeks. May cover incision daily if desired to prevent irritation from clothing. Report any redness, increasing swelling, increased pain, drainage, or fever. Discharge Attestations Time Spent in Discharge Care*: less than 30 min Specific Discharge Activities: Specific discharge activities: educating patient, discussing with pcp/other providers, discussing with director of casework/social workers/dc planners, documenting/other paperwork and evaluating patient/reviewing data Status at Discharge: Cognitive status at discharge: cognitively intact , Behavioral status at discharge: cooperative , Overall status at discharge: patient is back to baseline Quality Metrics Clinical Quality Measures During this hospital stay, did patient experience: None Coding Level of Care Code Acute Filter Cloth Maker for Chg Fwd Diagnoses Heart bloc atrioventricular I44.30 Atrial fibrillation I48.11 Atrial fibrillation type: longstanding persistent HTN (hypertension) I10 Hypertension type: essential hypertension Renal failure N18.4 Renal failure chronicity: chronic Chronic kidney disease stage: stage 4 (severe)
[2019-11-02 06:46] LABS: Glucose Point of Care 99 mg/dL (70-110)
--- NOTE | 2019-11-02 07:09 | PC.NURSE ---
Patient asked that SCDs be taken off.
[2019-11-02 08:36] VITALS: BP 176/84; PULSE 68; RESP 18; TEMP 36.7; O2SAT 96
--- NOTE | 2019-11-02 08:56 | ANE.PACU2 ---
Inpatient post-anesthesia follow up: Airway intact: Yes Vital signs: Temperature 98.0 F Pulse Rate 68 Respiratory Rate 18 Blood Pressure 176/84 Pulse Oximetry 96 Oxygen Delivery Me thod [ Room Air Current Rate & Del arianna] Oxygen Delivery Me thod Room Air Oxygen Flow Rate Fraction of Inspir ed Oxygen Hydration adequate: Yes Nausea and vomiting: No Pain level: 1 Mental status: Baseline
[2019-11-02] MEDS: atorvastatin 40 mg Tablet 20 MG PO (09:29)
[2019-11-02] MEDS: FUROsemide 20 mg Tablet PO (09:29)
[2019-11-02] MEDS: pantoprazole DR 40 mg Tablet PO (09:29)
[2019-11-02] MEDS: gemfibrozil 600 mg Tablet PO (09:29)
[2019-11-02] MEDS: hyDRALAzine 25 mg Tablet PO (09:30)
[2019-11-02] MEDS: amlodipine 10 mg Tablet PO (09:30)
[2019-11-02] MEDS: gabapentin 300 mg Capsule PO (09:30)
[2019-11-02] MEDS: lisinopril 10 mg Tablet PO (09:30)
[2019-11-02 11:21] VITALS: BP 176/84; PULSE 68; RESP 18; TEMP 36.7; O2SAT 96
== END 2019-11-02 11:00 | disposition home or self-care (01) ==
LOC: MEDSURG 11-01 08:33 → CSU 11-01 08:56
PROVIDERS: Admitting Provider Internal Medicine Cardiovascular Disease; PCP Family Medicine; Visit Provider Thoracic Surgery (Cardiothoracic Vascular Surgery)
PROC: (CPT 33208; principal; 2019-11-01 07:00)
DX: I44.1 Atrioventricular block, second degree (principal); I48.11 Longstanding persistent atrial fibrillation; I12.9 Hypertensive chronic kidney disease with stage 1 through stage 4 chronic kidney disease, or unspecified chronic kidney disease; N18.4 Chronic kidney disease, stage 4 (severe); R00.1 Bradycardia, unspecified; I70.0 Atherosclerosis of aorta; E11.22 Type 2 diabetes mellitus with diabetic chronic kidney disease; E78.00 Pure hypercholesterolemia, unspecified; M51.26 Other intervertebral disc displacement, lumbar region; G47.30 Sleep apnea, unspecified; E11.40 Type 2 diabetes mellitus with diabetic neuropathy, unspecified; G62.89 Other specified polyneuropathies; Z87.891 Personal history of nicotine dependence; Z79.01 Long term (current) use of anticoagulants; Z79.4 Long term (current) use of insulin; Z79.899 Other long term (current) drug therapy
CPT/HCPCS: 33208; 12345; 36415; 36416; 71045; 76000; 80048; 81001; 82962; 85025; 85610; 87635; 93005; 96365; 96366; 96372; 97165; C1779; C1786; C1898; G0378; G0379; J0690; J1815 ×2; J1956; J2250; J2704; J3010; J7030

== ENCOUNTER → 2020-01-16 10:49 | Outpatient (BNVA) | payer BC, SELFPAY | PROVIDERS: PCP Family Medicine; Visit Provider Licensed Practical Nurse | DX: G62.89 Other specified polyneuropathies (principal); M21.379 Foot drop, unspecified foot; M51.16 Intervertebral disc disorders with radiculopathy, lumbar region; M21.372 Foot drop, left foot | CPT/HCPCS: 99214 ==

== ENCOUNTER → 2020-02-19 07:53 | Outpatient (BNVA) | payer BC, SELFPAY | PROVIDERS: PCP Family Medicine; Visit Provider Specialist | DX: M21.372 Foot drop, left foot (principal); M51.16 Intervertebral disc disorders with radiculopathy, lumbar region; M46.1 Sacroiliitis, not elsewhere classified; E11.42 Type 2 diabetes mellitus with diabetic polyneuropathy; Z79.4 Long term (current) use of insulin; Z87.891 Personal history of nicotine dependence | CPT/HCPCS: 20552; 99214 ==

== ENCOUNTER → 2020-07-16 11:55 | Outpatient (BNVA) | payer OTHER, SELFPAY | PROVIDERS: PCP Nurse Practitioner; Visit Provider Specialist | DX: E11.44 Type 2 diabetes mellitus with diabetic amyotrophy (principal); G54.1 Lumbosacral plexus disorders; Z79.4 Long term (current) use of insulin; Z87.891 Personal history of nicotine dependence | CPT/HCPCS: 99214 ==

== ENCOUNTER 2021-02-05 10:23 | Outpatient (CLI) | payer MEDICARE, SELFPAY ==
--- NOTE | 2021-02-05 10:36 | XR_ITS ---
WS: [id number] Exam: XR knee LT 3V* [id number] Date/Time of Exam: 02/05/2021 10:38 AM Reason For Exam: PAIN IN LEFT KNEE No fracture or dislocation. The joint compartments are relatively well maintained. No joint effusion. Mild spurring of the posterior patella. XR/XR knee LT 3V* [id number] IMPRESSION: 1. Minimal degenerative changes. 2. No fracture or joint effusion.
== END 2021-02-05 10:24 | disposition home or self-care (01) ==
LOC: RAD 10:31
PROVIDERS: PCP Nurse Practitioner; Visit Provider Anesthesiology Pain Medicine
DX: M25.562 Pain in left knee (principal)
CPT/HCPCS: 73562

== ENCOUNTER 2021-03-12 09:16 | Outpatient (CLI) | payer MEDICARE, SELFPAY ==
[2021-03-12 10:33] LABS: Estmated Average Glucose 180; Hemoglobin A1C 7.9 % (4.0-6.0)
[2021-03-12 10:35] LABS: Alanine Aminotransferase 10 U/L (0-41); Albumin Level 4.4 g/dL (3.5-5.2); Alkaline Phosphatase 156 IU/L (40-130); Anion Gap 20.8 (5-19); Aspartate Amino Transferase 15 U/L (0-40); Blood Urea Nitrogen 44 mg/dL (8-23); Calcium 8.9 mg/dL (8.5-10.5); Carbon Dioxide 18 mmol/L (22-29); Chloride 106 mmol/L (98-107); Globulin 2.8 g/dL (1.3-4.6); Glomerular Filtration Rate 26.3 mL/min (90-130); Glucose 193 mg/dL (65-115); Osmolality Calculated 306 mOsm/kg (285-295); Potassium 4.8 mmol/L (3.5-5.1); Sodium 140 mmol/L (136-145); Total Bilirubin 0.3 mg/dL (0.15-1.2); Total Protein 7.2 g/dL (6.6-8.7)
== END 2021-03-12 09:17 | disposition home or self-care (01) ==
LOC: LAB 09:38
PROVIDERS: PCP Nurse Practitioner; Visit Provider Nurse Practitioner
DX: E11.9 Type 2 diabetes mellitus without complications (principal); I10 Essential (primary) hypertension; E78.00 Pure hypercholesterolemia, unspecified
CPT/HCPCS: 80053; 83036

== ENCOUNTER → 2021-05-02 08:35 | Outpatient (BNVA) | payer MEDICARE, SELFPAY | PROVIDERS: PCP Nurse Practitioner | DX: I44.1 Atrioventricular block, second degree (principal); Z95.0 Presence of cardiac pacemaker | CPT/HCPCS: 93280 ==

== ENCOUNTER 2021-05-12 08:58 | Outpatient (CLI) | payer MEDICARE, SELFPAY ==
[2021-05-12 09:59] LABS: Basophils # 0.1 10^3/uL (0.0-0.1); Basophils % 0.7 %; Eosinophils # 0.3 10^3/uL (0.0-0.8); Eosinophils % 3.7 %; Hematocrit 43.8 % (42.0-52.0); Hemoglobin 14.3 g/dL (11.7-16.6); Lymphocytes # 1.3 10^3/uL (0.8-4.8); Lymphocytes % 18.5 %; Mean Corpuscular HGB Conc 32.6 g/dL (30.0-36.0); Mean Corpuscular Hemoglobin 29.9 pg (28.0-34.0); Mean Corpuscular Volume 91.6 fl (80-94); Mean Platelet Volume 10.1 fL (7.4-10.4); Monocytes # 0.4 10^3/uL (0.2-0.9); Monocytes % 6.2 %; Neutrophils # 4.78 10^3/uL (1.8-7.7); Neutrophils % 70.8 %; Nucleated Red Blood Cells % 0 %; Platelet Count 213 10^3/cmm (130-400); Red Blood Count 4.78 10^6/uL (4.1-5.3); Red Cell Distribution Width 13.3 % (12.1-15.1); White Blood Count 6.8 10^3/uL (4.0-10.0)
[2021-05-12 10:26] LABS: Anion Gap 20.7 (5-19); Blood Urea Nitrogen 44 mg/dL (8-23); Calcium 10.1 mg/dL (8.5-10.5); Carbon Dioxide 21 mmol/L (22-29); Chloride 106 mmol/L (98-107); Glomerular Filtration Rate 27.6 mL/min (90-130); Glucose 240 mg/dL (65-115); Phosphorus 4.4 mg/dL (2.5-4.5); Potassium 4.7 mmol/L (3.5-5.1); Sodium 143 mmol/L (136-145)
[2021-05-12 10:27] LABS: Calcium 10.8 mg/dL (8.5-10.5)
[2021-05-12 10:31] LABS: Creatinine Urine, Random 89 mg/dL (39-259)
[2021-05-12 10:35] LABS: Parathyroid Hormone 72.7 pg/mL (15-65)
[2021-05-12 10:49] LABS: Microalbum Creatinine Ratio Ur 3506 mg/dL (0-20); Microalbumin Random Urine 312 ug/dL (0-20)
== END 2021-05-12 08:59 | disposition home or self-care (01) ==
PROVIDERS: PCP Nurse Practitioner; Visit Provider Internal Medicine Nephrology
DX: N18.4 Chronic kidney disease, stage 4 (severe) (principal)
CPT/HCPCS: 80069; 82044; 82310; 83970; 85025

== ENCOUNTER → 2021-07-17 14:22 | Outpatient (BNVA) | payer MEDICARE, SELFPAY | PROVIDERS: PCP Nurse Practitioner Family; Visit Provider Internal Medicine | DX: R00.1 Bradycardia, unspecified (principal); I48.11 Longstanding persistent atrial fibrillation; Z95.0 Presence of cardiac pacemaker; I10 Essential (primary) hypertension; Z79.01 Long term (current) use of anticoagulants; Z87.891 Personal history of nicotine dependence | CPT/HCPCS: 99214 ==

== ENCOUNTER → 2021-08-01 08:54 | Outpatient (BNVA) | payer MEDICARE, SELFPAY | PROVIDERS: PCP Nurse Practitioner Family; Visit Provider Internal Medicine | DX: Z45.010 Encounter for checking and testing of cardiac pacemaker pulse generator [battery] (principal) | CPT/HCPCS: 93280 ==

== ENCOUNTER 2021-09-15 07:12 | Outpatient (CLI) | payer MEDICARE, SELFPAY ==
[2021-09-15 07:59] LABS: Estmated Average Glucose 209; Hemoglobin A1C 8.9 % (4.0-6.0)
[2021-09-15 08:00] LABS: Creatinine Urine, Random 59 mg/dL (39-259)
[2021-09-15 08:03] LABS: Blood Urea Nitrogen 49 mg/dL (8-23); Calcium 10.1 mg/dL (8.5-10.5); Carbon Dioxide 22 mmol/L (22-29); Chloride 108 mmol/L (98-107); Chol HDL Ratio 5.54 mg/dL (1.0-5.00); Cholesterol 205 mg/dL (0-200); Glomerular Filtration Rate 27.5 mL/min (90-130); Glucose 258 mg/dL (65-115); HDL Cholesterol 37 mg/dL (60-100); LDL Cholesterol Calculated 100 mg/dL (50-129); Osmolality Calculated 318 mOsm/kg (285-295); Sodium 143 mmol/L (136-145); Triglycerides 340 mg/dL (0-150)
[2021-09-15 08:21] LABS: Microalbum Creatinine Ratio Ur 4119 mg/dL (0-20); Microalbumin Random Urine 243 ug/dL (0-20)
== END 2021-09-15 07:13 | disposition home or self-care (01) ==
LOC: LAB 07:19
PROVIDERS: PCP Nurse Practitioner Family; Visit Provider Nurse Practitioner
DX: E11.9 Type 2 diabetes mellitus without complications (principal)
CPT/HCPCS: 36415; 80048; 80061; 82044; 83036

== ENCOUNTER → 2021-10-31 09:33 | Outpatient (BNVA) | payer MEDICARE, SELFPAY | PROVIDERS: PCP Nurse Practitioner Family; Visit Provider Internal Medicine | DX: Z45.010 Encounter for checking and testing of cardiac pacemaker pulse generator [battery] (principal) | CPT/HCPCS: 93280 ==

== ENCOUNTER 2021-11-17 07:26 | Outpatient (CLI) | payer MEDICARE, SELFPAY ==
[2021-11-17 08:03] LABS: Basophils # 0.1 10^3/uL (0.0-0.1); Basophils % 0.6 %; Eosinophils # 0.3 10^3/uL (0.0-0.8); Eosinophils % 3.5 %; Hematocrit 40.8 % (42.0-52.0); Hemoglobin 13.3 g/dL (11.7-16.6); Lymphocytes # 1.3 10^3/uL (0.8-4.8); Lymphocytes % 16.5 %; Mean Corpuscular HGB Conc 32.6 g/dL (30.0-36.0); Mean Corpuscular Hemoglobin 30.4 pg (28.0-34.0); Mean Corpuscular Volume 93.2 fl (80-94); Mean Platelet Volume 9.8 fL (7.4-10.4); Monocytes # 0.5 10^3/uL (0.2-0.9); Monocytes % 6.5 %; Neutrophils # 5.59 10^3/uL (1.8-7.7); Neutrophils % 72.5 %; Nucleated Red Blood Cells % 0 %; Platelet Count 203 10^3/cmm (130-400); Red Blood Count 4.38 10^6/uL (4.1-5.3); Red Cell Distribution Width 13.5 % (12.1-15.1); White Blood Count 7.7 10^3/uL (4.0-10.0)
[2021-11-17 08:27] LABS: Creatinine Urine, Random 43 mg/dL (39-259)
[2021-11-17 08:30] LABS: Calcium 8.9 mg/dL (8.5-10.5)
[2021-11-17 08:31] LABS: Anion Gap 15.6 (5-19); Blood Urea Nitrogen 45 mg/dL (8-23); Carbon Dioxide 19 mmol/L (22-29); Chloride 113 mmol/L (98-107); Glomerular Filtration Rate 26.2 mL/min (90-130); Glucose 131 mg/dL (65-115); Phosphorus 3.4 mg/dL (2.5-4.5); Potassium 4.6 mmol/L (3.5-5.1); Sodium 143 mmol/L (136-145)
[2021-11-17 08:37] LABS: Parathyroid Hormone 181.4 pg/mL (15-65)
[2021-11-17 08:41] LABS: Microalbum Creatinine Ratio Ur 2791 mg/dL (0-20); Microalbumin Random Urine 120 ug/dL (0-20)
[2021-11-17 08:46] LABS: 25 Hydroxy Vitamin D 26 ng/mL (30-100)
== END 2021-11-17 07:27 | disposition home or self-care (01) ==
LOC: LAB 07:29
PROVIDERS: PCP Nurse Practitioner Family; Visit Provider Internal Medicine Nephrology
DX: N18.4 Chronic kidney disease, stage 4 (severe) (principal)
CPT/HCPCS: 36415; 80069; 82044; 82306; 82310; 83970; 85025